=== PATIENT | male | born 1990 | race Caucasian/White ===

== ENCOUNTER 2020-11-15 10:40 | Emergency (ER) | payer MEDICAID ==
[~2020-11-15] VITALS: Ht 180.3 cm; Wt 81.6 kg
[~2020-11-15 10:40] MED LIST: METH10T PO
[2020-11-15] MEDS ORDERED: LORazepam 2MG/ML-1ML VIAL IV ONE (11:00)
[2020-11-15] MEDS ORDERED: SODIUM CHLORIDE 0.9% 1,000 ML IV ONE (11:00)
[2020-11-15 11:41] LABS: Basophils # (auto) 0.1 10 ^3/uL (0-0.2); Eosinophils # (auto) 0.1 10 ^3/uL (0-0.8); Eosinophils % (auto) 0.8 % (0.0-7.0); Hematocrit 47.1 % (41.0-53.0); Hemoglobin 16.3 g/dL (13.5-17.5); Lymphocytes # (auto) 1.5 10 ^3/uL (0.4-5.4); Lymphocytes % (auto) 20.7 % (10.0-50.0); Mean Corpuscular Hemoglobin 32.8 pg (28.0-32.0); Mean Corpuscular Hgb Conc. 34.6 g/dL (32.0-36.0); Mean Corpuscular Volume 94.9 fL (80.0-100.0); Monocytes # (auto) 0.6 10 ^3/uL (0-1.3); Monocytes % (auto) 7.9 % (0.0-12.0); Neutrophils % (auto) 69.6 % (37.0-80.0); Nucleated Red Blood Cells % 0.1 %; Platelet Count (auto) 286 10^3/uL (140-450); Red Blood Cells 4.96 10^6/uL (4.5-5.90); Red Cell Distribution Width 14.1 % (11.8-14.3); White Blood Cell 7.1 10^3/uL (4.4-10.8)
[2020-11-15 11:56] LABS: Albumin 3.8 g/dL (3.4-5.0); Calcium 9.3 mg/dL (8.5-10.1); Potassium 3.6 mmol/L (3.5-5.1)
[2020-11-15 12:00] LABS: BUN/Creatinine Ratio 10.8; Bilirubin, Total 1.4 mg/dL (0.2-1.0); Total Protein 8.2 g/dL (6.4-8.2)
[2020-11-15] MEDS ORDERED: LORazepam 0.5 MG TAB PO ONE (12:30)
[2020-11-15] MEDS ORDERED: GABA300C10 PO (12:36)
[2020-11-15] MEDS ORDERED: THIA100T5 PO (12:40)
[2020-11-15] MEDS ORDERED: FOLI1TAB6 PO (12:40)
[2020-11-15] MEDS ORDERED: GABAPENTIN 300 MG CAP PO ONE (12:45)
[2020-11-15 12:51] VITALS: BP 144/93
== END 2020-11-15 13:04 | disposition home or self-care (01) ==
LOC: ER 10:41
DX: F41.9 Anxiety disorder, unspecified (principal); F17.210 Nicotine dependence, cigarettes, uncomplicated; F14.10 Cocaine abuse, uncomplicated
CPT/HCPCS: 36415; 80053; 80320; 85025; 93005

== ENCOUNTER 2023-06-01 06:37 | Emergency (ER) | payer MEDICAID ==
[~2023-06-01] VITALS: Ht 180.3 cm; Wt 81.9 kg
[~2023-06-01 06:37] MED LIST changes: +FOLI-119 PO; +GABA-1250 PO; +PANT40TA2 PO; +THIA100T5 PO
[2023-06-01] MEDS ORDERED: SODIUM CHLORIDE 0.9% 1,000 ML IV ONE ×2 (06:45)
[2023-06-01] MEDS ORDERED: NALOXONE HCL 1MG/ML 2ML SYRINGE IV ONE (06:45)
[2023-06-01 06:56] VITALS: BP 127/92; PULSE 99; RESP 15; O2SAT 98
[2023-06-01 07:23] LABS: Basophils # (auto) 0.1 10 ^3/uL (0-0.2); Basophils % (auto) 0.6 % (0.0-2.0); Eosinophils # (auto) 0.5 10 ^3/uL (0-0.8); Eosinophils % (auto) 3.8 % (0.0-7.0); Hematocrit 45.8 % (41.0-53.0); Hemoglobin 15.5 g/dL (13.5-17.5); Lymphocytes # (auto) 2.9 10 ^3/uL (0.4-5.4); Lymphocytes % (auto) 22.4 % (10.0-50.0); Mean Corpuscular Hemoglobin 28.8 pg (28.0-32.0); Mean Corpuscular Hgb Conc. 33.8 g/dL (32.0-36.0); Monocytes # (auto) 0.9 10 ^3/uL (0-1.3); Monocytes % (auto) 7.1 % (0.0-12.0); Neutrophils # (auto) 8.6 10 ^3/uL (1.6-8.6); Neutrophils % (auto) 66.1 % (37.0-80.0); Red Blood Cells 5.39 10^6/uL (4.5-5.90)
[2023-06-01 07:36] LABS: Alanine Aminotransferase 31 U/L (7-40); Albumin 4.4 g/dL (3.2-4.8); Alkaline Phosphatase 81 U/L (46-116); Calcium 9.7 mg/dL (8.5-10.1); Chloride 104 mmol/L (98-107)
[2023-06-01 07:37] LABS: Anion Gap 6 (5-15); Aspartate Aminotransferase 20 U/L (13-40); BUN/Creatinine Ratio 7.4 (10.0-20.0); Bilirubin, Total 0.5 mg/dL (0.2-1.0); Blood Urea Nitrogen 7 mg/dL (9-23); Carbon Dioxide 28 mmol/L (20-30); Glucose 109 mg/dL (74-106); Sodium 138 mmol/L (136-145); Total Protein 8.1 g/dL (5.7-8.2)
[2023-06-01] MEDS ORDERED: SODIUM CHLORIDE 0.9% 1,000 ML IVB ONE (08:45)
== END 2023-06-01 07:47 | disposition left against medical advice (07) ==
LOC: ER 06:37 → EDBD 06:37 → ER 07:47
DX: T40.411A Poisoning by fentanyl or fentanyl analogs, accidental (unintentional), initial encounter (principal); E86.0 Dehydration; F17.210 Nicotine dependence, cigarettes, uncomplicated; F12.10 Cannabis abuse, uncomplicated; F15.10 Other stimulant abuse, uncomplicated; Y92.9 Unspecified place or not applicable
CPT/HCPCS: 36415; 80053; 85025

== ENCOUNTER 2024-12-04 11:11 | Inpatient (IN) | payer MEDICAID ==
[~2024-12-04] VITALS: Ht 167.6 cm; Wt 89.6 kg
[~2024-12-04 11:11] MED LIST changes: +METH-1214 PO; -METH10T PO
--- NOTE | 2024-12-04 12:26 | ED.PDOC ---
Musculoskeletal HPI Comments HPI: 34M was BIBA for the c/c of Right Lower Extremity Pain. Pt is Homeless and states that he has been experiencing Right lower Extremity pain for the past 3x days with no alleviating factors at this time. Pt notes of Swelling, Redness, and Tenderness that worsen while walking. Patient is homeless. Denies any fall or trauma. PMHx: Denies SHx: Appendectomy ETOH: Marijuana, Methamphetamine, Fentanyl Vitals: TEMP: 98.8 Pulse: 100 RR: 18 BP: 134/81 CUENCA: RLE HPI: Poor Historian. REVIEW OF SYSTEMS: CONSTITUTIONAL: Denies acute: fever, diaphoresis, chills, HEAD: Denies acute: headache, photophobia Eyes: Denies acute: Double vision, vision loss, eye pain, eye discharge. EARS: Denies acute: tinnitus, hearing loss, ear discharge, ear pain, THROAT: Denies acute: sore throat, swelling, difficulty swallowing , pain with swallowing, change in voice. NECK: Denies acute: neck pain, neck swelling, stiff neck. HEART: Denies acute : chest pain, palpitations, LUNGS: Denies acute: SOB, wheezing, cough, hemoptysis ABDOMEN: Denies acute: abdominal pain, Nausea, Vomiting, diarrhea, melena , hematemesis, hematochezia SKIN: Denies acute: rash, redness, lesions, itchiness. EXTREMITIES: Denies acute: calf pain, numbness, tingling, weakness, Denies acute: Low back pain. Neuro: Denies acute: focal neurological deficit, motor or sensory focal neurological deficit, tremors, seizure like activity, confusion, dizziness, change in mental status, loss of bowel or bladder function, cauda equina like symptoms. : Denies acute: dysuria, hematuria, flank pain, increase in urinary frequency. PSYCH: Denies acute: hallucination, suicidal ideation, homicidal ideation. PHYSICAL EXAM: General: ---mild to moderate-----acute distress, awake and alert. Head: normocephalic, atraumatic. Neck: supple, trachea is midline, no swelling. Throat: Normal phonation. Eyes:, no erythema, no purulent discharge, no proptosis, no icterus. Heart: regular rate, regular rhythm, no significant murmur appreciated. Lungs: no apparent respiratory distress, Able to speak in full sentences. No wheezing, no rhonchi, no crackles. No stridors Clear to auscultation bilaterally. Abdomen: non tender to palpation, non distended, soft, no guarding, no rebound, + bowel sounds. Neuro: Awake, Alert, oriented to name, self, situation, follows commands GCS=15. Speech is normal. Skin: no petechia, no purpura, no cyanosis, non-pale, not jaundice. Lower extremities: --no - Pitting edema no deformity, no focal swelling, no calf TTP. Evaluation of the area of complaint right lower extremity: Patient has tenderness to palpation of the dorsal and plantar aspect of his right foot. Patient is neurovascularly intact in the affected extremity. Pedal pulses palpable. Motor and sensory are present in the affected extremity. Patient denies any fall or trauma. Makes eye contact. moves all four extremities. Face: no apparent facial droop. ED COURSE: Chief Complaint: Lower Extremity Time Seen by MD: 12:20 Primary Care Provider: NONE Reviewed Notes: Nurses Notes, Medications, Allergies Allergies: Coded Allergies: NO KNOWN ALLERGIES (Unverified , 09/01/15) Home Meds Active Scripts Pantoprazole Sodium Sesquihydr (Protonix) 40 Mg Tab, 40 MG PO DAILY, #30 TAB Prov:PEREZ CASTREJON MD 09/13/22 Thiamine Hcl (Thiamine Hcl) 100 Mg Tab, 100 MG PO DAILY, #30 MG Prov:ISABELLE ABARCA MD 11/15/20 Folic Acid (Folic Acid) 1 Mg Tab, 1 MG PO DAILY, #30 MG Prov:ISABELLE ABARCA MD 11/15/20 Gabapentin (Gabapentin) 300 Mg Cap, 300 MG PO TID, #18 MG Take 300 mg p.o. 3 times daily x3 days, then 300 mg p.o. 2 times a day x3 days then 300 mg p.o. daily x3 days then stop Prov:ISABELLE ABARCA MD 11/15/20 Reported Medications Methadone Hcl (METHADONE HCL TABLET) 10 Mg Tb, 13 MG PO DAILY 09/01/15 Information Source: Patient Mode of Arrival: EMS Location: Right Past Medical History PAST MEDICAL HISTORY: Denies Surgical History: Appendectomy, Unknown Family History Family History: Reviewed,noncontributory to illness Social History Smoker: Cigarettes Alcohol: Occasionally Drugs: Marijuana, Methamphetamine Lives In: Home Was a procedure done? Was a procedure done?: No Differential Diagnosis EXT Differential Diagnosis: Cellulitis, CHF, Deep Vein Thrombosis, Compartment Syndrome, Fracture, Sprain, Dislocation, Laceration, Gout, DJD, Myocardial Infarction, Contusion, Strain, Rheumatoid, Septic, Neurovascular injury, Arthritis, Other (Necrotizing fasciitis) X-Ray, Labs, Meds, VS Vital Signs Date Time Temp Pulse Resp B/P (MAP) Pulse Ox O2 Delivery O2 Flow Rate FiO2 12/04/24 14:25 Room Air* 0 21 12/04/24 11:27 98.8 100 18 134/81 (98) 97 98.8 Lab Test 12/04/24 12:56 Range/Units White Blood Count 19.5 H 4.4-10.8 10^3/uL Red Blood Count 4.77 4.5-5.90 10^6/uL Hemoglobin 13.6 13.5-17.5 g/dL Hematocrit 40.0 L 41.0-53.0 % Mean Corpuscular Volume 83.8 80.0-100.0 fL Mean Corpuscular Hemoglobin 28.6 28.0-32.0 pg Mean Corpuscular Hemoglobin Concent 34.1 32.0-36.0 g/dL Red Cell Distribution Width 13.6 11.8-14.3 % Platelet Count 623 H 140-450 10^3/uL Mean Platelet Volume 6.8 L 6.9-10.8 fL Neutrophils (%) (Auto) 87.6 H 37.0-80.0 % Lymphocytes (%) (Auto) 6.9 L 10.0-50.0 % Monocytes (%) (Auto) 4.9 0.0-12.0 % Eosinophils (%) (Auto) 0.3 0.0-7.0 % Basophils (%) (Auto) 0.3 0.0-2.0 % Neutrophils # (Auto) 17.1 H 1.6-8.6 10 ^3/uL Lymphocytes # (Auto) 1.4 0.4-5.4 10 ^3/uL Monocytes # (Auto) 1.0 0-1.3 10 ^3/uL Eosinophils # (Auto) 0.1 0-0.8 10 ^3/uL Basophils # (Auto) 0.1 0-0.2 10 ^3/uL Nucleated Red Blood Cells 0.0 % Erythrocyte Sedimentation Rate 80 H 0-20 mm/hr Sodium Level 135 L 136-145 mmol/L Potassium Level 3.6 3.5-5.1 mmol/L Chloride Level 99 98-107 mmol/L Carbon Dioxide Level 26 20-31 mmol/L Anion Gap 10 5-15 Blood Urea Nitrogen 7 L 9-23 mg/dL Creatinine 0.71 0.700-1.30 mg/dL Glomerular Filtration Rate Calc 124 >90 mL/min BUN/Creatinine Ratio 9.9 L 10.0-20.0 Serum Glucose 108 H 74-106 mg/dL Lactic Acid Level 1.3 0.4-2.0 mmol/L Calcium Level 10.2 8.7-10.4 mg/dL Total Bilirubin 1.2 H 0.2-1.0 mg/dL Aspartate Amino Transferase (AST) 24 13-40 U/L Alanine Aminotransferase (ALT) 30 7-40 U/L Alkaline Phosphatase 103 46-116 U/L Creatine Kinase 138 46-171 U/L C-Reactive Protein High Sensitivity 18.06 H <1.0 mg/dL Total Protein 8.7 H 5.7-8.2 g/dL Albumin 4.6 3.2-4.8 g/dL Hepatitis B Surface Antigen Pending Hepatitis C Antibody Pending Microbiology Date/Time Source Procedure Growth Status 12/04/24 12:56 Blood Blood Culture - Preliminary NO GROWTH AFTER 24 HOURS OF INCUBATION. Resulted 12/04/24 12:40 Blood Blood Culture - Preliminary NO GROWTH AFTER 24 HOURS OF INCUBATION. Resulted PATIENT: ALFREDO CUENCAACCT: [id number]: [id number] : 1990 LOC: ER ROOM / BED: / AGE / SEX: 34 / M ADM STATUS: REG ER SERVICE 1412 ORDERING PHYSICIAN: DAVID COLBY DO PROCEDURE(s): RTLEXW - RT LOWER EXTREMITY W CON REASON: RLE/ foot pain ORDER NUMBER(s): [id number], ACCESSION NUMBER(s): [id number] CLINICAL INFORMATION: Right lower extremity pain. TECHNIQUE: Axial CT images of the right lower extremity, from the level of the distal femur through the foot were obtained after the uneventful administration of 100 mL omnipaque 300 IV contrast were obtained without IV contrast. Coronal and sagittal reformatted images were obtained, reviewed, and stored. 3D reconstructed images were created at an independent workstation with concurrent physician supervision. All CT scans at this medical facility are performed using dose modulation techniques as appropriate to a performed exam including the fol lowing: Automated exposure control was utilized; adjustment of the MA and/or KV according to patient size; and use of iterative reconstruction technique. CTDIvol = 7.75 mGy DLP = 567.66 mGy-cm COMPARISON: None FINDINGS: There is moderate diffuse subcutaneous edema in the right lower leg. No organized fluid collection or peripherally enhancing collection identified to suggest abscess. No evidence of mass or abnormal postcontrast enhancement. There is moderate fluid in the suprapatellar recess of the knee. No acute fracture. No erosive changes or cortical destruction seen. IMPRESSION: 1. Nonspecific moderate subcutaneous edema in venous stasis changes. No organized fluid collection identified to suggest abscess. 2. No evidence of mass or abnormal postcontrast enhancement. 3. Moderate fluid in the suprapatellar recess of the right knee, likely effusion. Correlate with clinical findings. ATED BY: JS MEJIA DO DICTATED DATE/TIME: 12/04/24 1538 SIGNED BY: JS MEJIA DO SIGNED DATE/TIME: 12/04/24 1538 PATIENT: ALFREDO CUENCA ACCT: [id number] UNIT: [id number] : 1990 LOC: ER ROOM / BED: / AGE / SEX: 34 / M ADM STATUS: REG ER SERVICE 1220 ORDERING PHYSICIAN: DAVID COLBY DO PROCEDURE(s): RLDVT - RT Lower DVT REASON: PAIN ORDER NUMBER(s): [id number], ACCESSION NUMBER(s): [id number] US RT Lower DVT HISTORY: PAIN COMPARISON: None TECHNIQUE: Duplex doppler evaluation of the deep venous system of the lower extremity from the common femoral veins, superficial femoral vein, great saphe nous vein, deep femoral vein, popliteal vein, and calf veins, including color doppler and spectral/pulsed waveform analysis, was performed. FINDINGS: Right: - Common femoral vein: Compressible - Deep femoral vein: Compressible - Femoral vein: Compressible - Popliteal vein: Compressible - Posterior tibial vein: Waveforms present - Peroneal vein: Waveforms present - Other: Nothing IMPRESSION: No right lower extremity deep venous thrombosis. ATED BY: JOZEF SMITH MD DICTATED DATE/TIME: 12/04/241314 SIGNED BY: JOZEF SMITH MD SIGNED DATE/TIME: 12/04/241314 Time of 1ST Reevaluation: 12:50 Reevaluation 1ST: Unchanged Patient Education/Counseling: Diagnosis, Treatment Family Education/Counseling: No Family Present Comments Patient presented with the above HPI.---right leg pain---workup was initiated. patient was found with the above mentioned diagnosis. the following medications were ordered: please refer to order lists of meds and tests obtained by myself Dr. Colby. Patient ED course and VS have been stabilized. Patient has been reassessed in the ED and remained in a stable condition. Pertinent incidental findings were discussed with the patient and/or family. Patient/family voices understanding and is agreeable with plan. Patient has been observed in the ED adequate length of time to insure improvem ent/stability. Escalation of care considered: Consideration of escalation to observation or admission Sepsis protocol was initiated. Fluids and antibiotics were given. Patient was ADMITTED to the medicine team for further evaluation and treatment of their presentation. All the reports of any imaging studies that were ordered by myself were reviewed by myself. Departure 1 Departure Time of Disposition: 14:11 Impression: Primary Impression: Right foot pain Additional Impressions: Sepsis Leukocytosis Disposition: ADMITTED INPATIENT Admit to: Tele Condition: Guarded Discharged With: Self Critical Care Note Critical Care Time?: Yes (45 min-critical care time only) Stability Stability form required: No I personally scribed for DAVID COLBY DO ([email or web address]) on 12/04/24 at 12:25. Electronically submitted by Kenneth Jackson ([email or web address]). I personally scribed for DAVID COLBY DO ([email or web address]) on 12/04/24 at 21:36. Electronically submitted by Dru Castillo ([email or web address]). DAVID COLBY DO December 04, 2024 12:25
--- NOTE | 2024-12-04 13:17 | DVH ---
US RT Lower DVT HISTORY: PAIN COMPARISON: None TECHNIQUE: Duplex doppler evaluation of the deep venous system of the lower extremity from the common femoral veins, superficial femoral vein, great saphenous vein, deep femoral vein, popliteal vein, an d calf veins, including color doppler and spectral/pulsed waveform analysis, was performed. FINDINGS: Right: - Common femoral vein: Compressible - Deep femoral vein: Compressible - Femoral vein: Compressible - Popliteal vein: Compressible - Posterior tibial vein: Waveforms present - Peroneal vein: Waveforms present - Other: Nothing IMPRESSION: No right lower extremity deep venous thrombosis.
[2024-12-04 13:19] LABS: Basophils % (auto) 0.3 % (0.0-2.0); Eosinophils # (auto) 0.1 10 ^3/uL (0-0.8); Eosinophils % (auto) 0.3 % (0.0-7.0); Hemoglobin 13.6 g/dL (13.5-17.5); Mean Corpuscular Hgb Conc. 34.1 g/dL (32.0-36.0)
[2024-12-04 13:20] LABS: Basophils # (auto) 0.1 10 ^3/uL (0-0.2); Lymphocytes # (auto) 1.4 10 ^3/uL (0.4-5.4); Lymphocytes % (auto) 6.9 % (10.0-50.0); Mean Corpuscular Hemoglobin 28.6 pg (28.0-32.0); Mean Corpuscular Volume 83.8 fL (80.0-100.0); Monocytes % (auto) 4.9 % (0.0-12.0); Neutrophils # (auto) 17.1 10 ^3/uL (1.6-8.6); Neutrophils % (auto) 87.6 % (37.0-80.0); Platelet Count (auto) 623 10^3/uL (140-450); Red Blood Cells 4.77 10^6/uL (4.5-5.90); Red Cell Distribution Width 13.6 % (11.8-14.3); White Blood Cell 19.5 10^3/uL (4.4-10.8)
[2024-12-04 13:28] LABS: Alanine Aminotransferase 30 U/L (7-40); Albumin 4.6 g/dL (3.2-4.8); Alkaline Phosphatase 103 U/L (46-116); Anion Gap 10 (5-15); Aspartate Aminotransferase 24 U/L (13-40); BUN/Creatinine Ratio 9.9 (10.0-20.0); Bilirubin, Total 1.2 mg/dL (0.2-1.0); Calcium 10.2 mg/dL (8.7-10.4); Carbon Dioxide 26 mmol/L (20-31); Chloride 99 mmol/L (98-107); Creatine Kinase IFCC 138 U/L (46-171); Potassium 3.6 mmol/L (3.5-5.1)
[2024-12-04 13:30] LABS: Blood Urea Nitrogen 7 mg/dL (9-23); Glucose 108 mg/dL (74-106); Sodium 135 mmol/L (136-145); Total Protein 8.7 g/dL (5.7-8.2)
[2024-12-04 13:40] LABS: CRP High Sensitivity 18.06 mg/dL (<1.0)
[2024-12-04] MEDS: SODIUM CHLORIDE 0.9% 1,000 ML IV ONE ×2 (14:15→22:01)
[2024-12-04] MEDS: PIPERACILLIN-TAZOB 3.375GM 100 ML IV ONE (14:15)
[2024-12-04 14:26] LABS: Erythrocyte Sedimentation Rate 80 mm/hr (0-20)
[2024-12-04] MEDS: IOHEXOL 300 MG/ML 100ML BOTTLE IJ ONE (14:47)
[2024-12-04] MEDS ORDERED: ACETAMINOPHEN 325 MG TAB PO PRN (15:30)
[2024-12-04] MEDS ORDERED: VANCOMYCIN PER PHARMACY 0 MG IV SCH (15:30)
--- NOTE | 2024-12-04 15:40 | DVH ---
CLINICAL INFORMATION: Right lower extremity pain. TECHNIQUE: Axial CT images of the right lower extremity, from the level of the distal femur through t he foot were obtained after the uneventful administration of 100 mL omnipaque 300 IV contrast were ob tained without IV contrast. Coronal and sagittal reformatted images were obtained, reviewed, and stor ed. 3D reconstructed images were created at an independent workstation with concurrent physician urvashi crews. All CT scans at this medical facility are performed using dose modulation techniques as appr opriate to a performed exam including the following: Automated exposure control was utilized; adjustm ent of the MA and/or KV according to patient size; and use of iterative reconstruction technique. CTD Ivol = 7.75 mGy DLP = 567.66 mGy-cm COMPARISON: None FINDINGS: There is moderate diffuse subcutaneous edema in the right lower leg. No organized fluid col lection or peripherally enhancing collection identified to suggest abscess. No evidence of mass or ab normal postcontrast enhancement. There is moderate fluid in the suprapatellar recess of the knee. No acute fracture. No erosive changes or cortical destruction seen. IMPRESSION: 1. Nonspecific moderate subcutaneous edema in venous stasis changes. No organized fluid collection id entified to suggest abscess. 2. No evidence of mass or abnormal postcontrast enhancement. 3. Moderate fluid in the suprapatellar recess of the right knee, likely effusion. Correlate with cli nical findings.
[2024-12-04] MEDS: VANCOMYCIN 1GM/200ML PM 250 ML IV ONE (15:43)
[2024-12-04] MEDS: PANTOPRAZOLE 40 MG/10 ML VIAL INJ IV SCH (16:00)
--- NOTE | 2024-12-04 16:02 | DVHHP2 ---
History of Present Illness Reason for Visit: Right lower extremity pain and swelling History of Present Illness Shahriar Prado is a 34-year-old male with past medical history of gastritis, hiatal hernia, and appendectomy who presents to the ED with right lower extremity itchiness, pain and swelling x3 days. Also reports of right hand open wound x2 weeks. Patient reports that he was not bit nor was there any trauma. Patient reports that he does not take any medications. He also reports that he is homeless. He denies any chest pain, shortness of breath, fever, chills, lightheadedness, weakness, dizziness, abdominal pain, nausea, vomiting, diarrhea, recent sick contacts, recent travels, or recent ingestion of spoiled food. He does endorse that he smokes less than half a pack of cigarettes per day, uses marijuana, meth, and fentanyl. GI: Gastritis Past Medical History Hiatal hernia Past Surgical History: Appendectomy Family History: Hypertension, Other (Mom with hypertension) Smoke: <1 pack per day ALCOHOL: none Drugs: Marijuana, Other (Meth and fentanyl) Lives: Homeless Domestic Violence: Neg Review of Systems Musculoskeletal: leg pain Skin: Rash, Other (abrasions on hand and RLE ) Allergies: Coded Allergies: NO KNOWN ALLERGIES (Unverified , 09/01/15) Exam Vital Signs Vital Signs Date Time Temp Pulse Resp B/P (MAP) Pulse Ox O2 Delivery O2 Flow Rate FiO2 12/04/24 11:27 98.8 100 18 134/81 (98) 97 98.8 General Appearance: Alert, Oriented X3, Cooperative, No acute distress HEENT: Atraumatic, PERRLA, EOMI, Mucous membr. moist/pink Respiratory: Normal air movement Cardiovascular: Regular rate, Normal S1, Normal S2, No murmurs Abdominal: Normal bowel sounds, Soft Extremities: No cyanosis Neuro: Normal speech, Normal tone, Sensation intact Psych/Mental Status: Mental status NL, Mood NL Labs/Xrays Labs Test 12/04/24 12:56 Range/Units White Blood Count 19.5 H 4.4-10.8 10^3/uL Red Blood Count 4.77 4.5-5.90 10^6/uL Hemoglobin 13.6 13.5-17.5 g/dL Hematocrit 40.0 L 41.0-53.0 % Mean Corpuscular Volume 83.8 80.0-100.0 fL Mean Corpuscular Hemoglobin 28.6 28.0-32.0 pg Mean Corpuscular Hemoglobin Concent 34.1 32.0-36.0 g/dL Red Cell Distribution Width 13.6 11.8-14.3 % Platelet Count 623 H 140-450 10^3/uL Mean Platelet Volume 6.8 L 6.9-10.8 fL Neutrophils (%) (Auto) 87.6 H 37.0-80.0 % Lymphocytes (%) (Auto) 6.9 L 10.0-50.0 % Monocytes (%) (Auto) 4.9 0.0-12.0 % Eosinophils (%) (Auto) 0.3 0.0-7.0 % Basophils (%) (Auto) 0.3 0.0-2.0 % Neutrophils # (Auto) 17.1 H 1.6-8.6 10 ^3/uL Lymphocytes # (Auto) 1.4 0.4-5.4 10 ^3/uL Monocytes # (Auto) 1.0 0-1.3 10 ^3/uL Eosinophils # (Auto) 0.1 0-0.8 10 ^3/uL Basophils # (Auto) 0.1 0-0.2 10 ^3/uL Nucleated Red Blood Cells 0.0 % Erythrocyte Sedimentation Rate 80 H 0-20 mm/hr Sodium Level 135 L 136-145 mmol/L Potassium Level 3.6 3.5-5.1 mmol/L Chloride Level 99 98-107 mmol/L Carbon Dioxide Level 26 20-31 mmol/L Anion Gap 10 5-15 Blood Urea Nitrogen 7 L 9-23 mg/dL Creatinine 0.71 0.700-1.30 mg/dL Glomerular Filtration Rate Calc 124 >90 mL/min BUN/Creatinine Ratio 9.9 L 10.0-20.0 Serum Glucose 108 H 74-106 mg/dL Lactic Acid Level 1.3 0.4-2.0 mmol/L Calcium Level 10.2 8.7-10.4 mg/dL Total Bilirubin 1.2 H 0.2-1.0 mg/dL Aspartate Amino Transferase (AST) 24 13-40 U/L Alanine Aminotransferase (ALT) 30 7-40 U/L Alkaline Phosphatase 103 46-116 U/L Creatine Kinase 138 46-171 U/L C-Reactive Protein High Sensitivity 18.06 H <1.0 mg/dL Total Protein 8.7 H 5.7-8.2 g/dL Albumin 4.6 3.2-4.8 g/dL CLINICAL INFORMATION: Right lower extremity pain. TECHNIQUE: Axial CT images of the right lower extremity, from the level of the distal femur through the foot were obtained after the uneventful administration of 100 mL omnipaque 300 IV contrast were obtained without IV contrast. Coronal and sagittal reformatted images were obtained, reviewed, and stored. 3D reconstructed images were created at an independent workstation with concurrent physician supervision. All CT scans at this medical facility are performed using dose modulation techniques as appropriate to a performed exam including the following: Automated exposure control was utilized; adjustment of the MA and/or KV according to patient size; and use of iterative reconstruction technique. CTDIvol = 7.75 mGy DLP = 567.66 mGy-cm COMPARISON: None FINDINGS: There is moderate diffuse subcutaneous edema in the right lower leg. No organized fluid collection or peripherally enhancing collection identified to suggest abscess. No evidence of mass or abnormal postcontrast enhancement. There is moderate fluid in the suprapatellar recess of the knee. No acute fracture. No erosive changes or cortical destruction seen. IMPRESSION: 1. Nonspecific moderate subcutaneous edema in venous stasis changes. No organized fluid collection identified to suggest abscess. 2. No evidence of mass or abnormal postcontrast enhancement. 3. Moderate fluid in the suprapatellar recess of the right knee, likely effusion. Correlate with clinical findings. US RT Lower DVT HISTORY: PAIN COMPARISON: None TECHNIQUE: Duplex doppler evaluation of the deep venous system of the lower extremity from the common femoral veins, superficial femoral vein, great saphenous vein, deep femoral vein, popliteal vein, and calf veins, including color doppler and spectral/pulsed waveform analysis, was performed. FINDINGS: Right: - Common femoral vein: Compressible - Deep femoral vein: Compressible - Femoral vein: Compressible - Popliteal vein: Compressible - Posterior tibial vein: Waveforms present - Peroneal vein: Waveforms present - Other: Nothing IMPRESSION: No right lower extremity deep venous thrombosis. Assessment/Plan Assessment/Plan Assessment Leukocytosis probable SIRS versus sepsis Right lower extremity pain and swelling likely cellulitis Probable right knee effusion Hyperbilirubinemia Tobacco use Marijuana use Meth use Fentanyl use Obesity History of gastritis History of hiatal hernia History of appendectomy Plan Admit to [facility] Antiemetics Pain management Wound culture Gram stain Wound consult IV antibiotics-Zosyn + vancomycin NS [address] right lower extremity Blood cultures Right lower extremity venous UA ESR Lactic level UDS CK CRP Diet Per patient does not take any medications DVT prophylaxis-Lovenox PUD prophylaxis-PPIs Discussed plan of care with patient and nurse Counseled patient on lifestyle modifications, diet, and exercise Counseled patient on cessation of tobacco use, meth use, and fentanyl use Social work consult-patient homeless Plan discussed with: Patient My Orders Orders - ARINA VILLARREAL Procedure Category Date Status Time Vancomycin Per PHA 12/04/24 Verified Pharmacy 15:30 Zosyn Extended PHA 12/04/24 Verified Infusion 22:00 Drug Screen LAB 12/04/24 Verified 15:29 Erythrocyte LAB 12/04/24 Verified Sedimentation Rate 15:29 Admit ADMIT 12/04/24 Verified 15:29 Allergies ARACELY 12/04/24 Verified 15:29 Code Status CODE 12/04/24 Verified 15:29 Hydrocodone-Acet PHA 12/04/24 Verified 5/325mg Tab (Poteet 15:30 Ondansetron Hcl PHA 12/04/24 Verified (Zofran) 15:30 Enoxaparin Sodium PHA 12/05/24 Verified (Lovenox) 10:00 Complete Blood Count LAB 12/05/24 Verified 04:00 Comprehensive LAB 12/05/24 Verified Metabolic Panel 04:00 Cardiac DIET 12/04/24 Verified Diet-2gna,Lofat,Lochol Dinner Acetaminophen Tablet PHA 12/04/24 Verified (Tylenol Tablet) 15:30 * Wound Consult CONS 12/04/24 Verified Wound Culture W/ Gs RAVEN 12/04/24 Verified 15:29 Date of Service: December 04, 2024 Billing Provider: ARINA VILLARREAL Common Visit Codes: [id number] INP/OBS CARE (HIGH) ARIAN VILLARREAL December 04, 2024 16:02
[2024-12-04 18:20] VITALS: BP 101/62; PULSE 84; RESP 18; TEMP 99.1; O2SAT 93; O2SAT 94
[2024-12-04 19:10] VITALS: TEMP 99.4
[2024-12-04 19:17] LABS: Urine Bacteria None Seen /hpf (None Seen)
[2024-12-04 19:39] LABS: Urine Blood Negative /uL (Negative); Urine Clarity Clear (Clear); Urine Color Yellow (Yellow); Urine Mucus FEW (None Seen); Urine Protein, UAD TRACE (Negative); Urine Squamous Epithelial Cell FEW /hpf (<5); Urine Urobilinogen Normal (Negative); Urine WBC 1 /HPF (0-3); Urine pH 6.5 (5.0-9.0)
[2024-12-04 19:48] LABS: Urine Specific Gravity > 1.050 (1.001-1.035)
[2024-12-04 19:59] LABS: Amphetamine Screen, Urine Pos (NEGATIVE); Barbiturate Scree,Urine Neg (NEGATIVE); Benzodiazephine Screen, Urine Neg (NEGATIVE); Cannabinoid Screen, Urine Neg (NEGATIVE); Cocaine Screen, Urine Neg (NEGATIVE); Opiate Scree,Urine Neg (NEGATIVE); Phencyclidine Screen, Urine Neg (NEGATIVE)
[2024-12-04 20:00] VITALS: PULSE 90; RESP 26; O2SAT 98
[2024-12-04 21:00] VITALS: BP 120/73; PULSE 90; RESP 26; TEMP 98.5; O2SAT 98
[2024-12-04] MEDS: VANCOMYCIN 750mg/150ml 150 ML IV SCH (22:01)
[2024-12-04] MEDS: PIPERACILLIN-TAZOB 3.375GM 100 ML IV SCH (23:58)
[2024-12-05] VITALS (8 sets, daily range): BP systolic 111–131; BP diastolic 51–77; PULSE 88–103; RESP 16–23; TEMP 97.4–99.7; O2SAT 95–99
[2024-12-05] MEDS: HYDROcodone-ACET 5/325MG TAB PO PRN (05:48)
[2024-12-05 05:59] LABS: Eosinophils % (auto) 0.3 % (0.0-7.0); Hemoglobin 12.7 g/dL (13.5-17.5); Red Cell Distribution Width 13.6 % (11.8-14.3)
[2024-12-05 06:05] LABS: Basophils # (auto) 0.1 10 ^3/uL (0-0.2); Basophils % (auto) 0.3 % (0.0-2.0); Eosinophils # (auto) 0.1 10 ^3/uL (0-0.8); Hematocrit 37.2 % (41.0-53.0); Lymphocytes # (auto) 1.3 10 ^3/uL (0.4-5.4); Lymphocytes % (auto) 7.6 % (10.0-50.0); Mean Corpuscular Hemoglobin 28.4 pg (28.0-32.0); Mean Corpuscular Hgb Conc. 34.1 g/dL (32.0-36.0); Mean Corpuscular Volume 83.4 fL (80.0-100.0); Monocytes # (auto) 0.8 10 ^3/uL (0-1.3); Monocytes % (auto) 4.5 % (0.0-12.0); Neutrophils # (auto) 15.3 10 ^3/uL (1.6-8.6); Neutrophils % (auto) 87.3 % (37.0-80.0); Platelet Count (auto) 609 10^3/uL (140-450); Red Blood Cells 4.46 10^6/uL (4.5-5.90); White Blood Cell 17.5 10^3/uL (4.4-10.8)
[2024-12-05 06:23] LABS: Alanine Aminotransferase 24 U/L (7-40); Albumin 3.9 g/dL (3.2-4.8); Alkaline Phosphatase 94 U/L (46-116); Anion Gap 12 (5-15); Aspartate Aminotransferase 18 U/L (13-40); BUN/Creatinine Ratio 10.9 (10.0-20.0); Calcium 9.1 mg/dL (8.7-10.4); Carbon Dioxide 23 mmol/L (20-31); Chloride 103 mmol/L (98-107); Sodium 138 mmol/L (136-145); Total Protein 7.6 g/dL (5.7-8.2)
[2024-12-05 06:34] LABS: Blood Urea Nitrogen 7 mg/dL (9-23); Glucose 126 mg/dL (74-106); Potassium 3.2 mmol/L (3.5-5.1)
[2024-12-05] MEDS: ENOXAPARIN SOD 40 MG/0.4 ML SYRINGE SC SCH (08:54)
--- NOTE | 2024-12-05 11:33 | DVHPN2 ---
Subjective 34-year-old male homeless came with chief complaint of pain and swelling in his right leg for 3-4 days He has cellulitis Changes from previous H/P or p: Changes Musculoskeletal: leg pain Skin: Rash, Other (abrasions on hand and RLE ) Objective Vitals Vital Signs Date Time Temp Pulse Resp B/P (MAP) Pulse Ox O2 Delivery O2 Flow Rate FiO2 12/05/24 08:36 98.8 88 16 123/68 (86) 98 98.8 12/05/24 08:05 Room Air* 0 21 Intake/Output Intake and Output 12/05/24 07:00 Intake Total 1400 ml Output Total 500 ml Balance 900 ml Intake Oral 0 ml IV Total 1400 ml Output Urine Total 500 ml General Appearance: Alert, Oriented X3, Cooperative Extremities: No edema, Other (Right lower extremity edema and erythema [id number]) Medications Current Medications Medications Dose Ordered Sig/Elina Route Start Time Stop Time Status Last Admin Dose Admin Vancomycin HCl 0 ml @ 0 mls/hr UD IV 12/04/24 15:30 Piperacillin Sod/ Tazobactam Sod 100 ml @ 25 mls/hr Q6H IV 12/04/24 23:00 12/05/24 10:52 25 MLS/HR Acetaminophen/ Hydrocodone Bitart 1 tab Q4HP PRN PO 12/04/24 15:30 12/05/24 05:48 1 TAB Ondansetron HCl 4 mg Q4HP PRN IV 12/04/24 15:30 Enoxaparin Sodium 40 mg DAILY SC 12/05/24 10:00 12/05/24 08:54 40 MG Acetaminophen 650 mg Q6HP PRN PO 12/04/24 15:30 Pantoprazole Sodium 40 mg DAILY IV 12/04/24 16:00 12/05/24 08:54 40 MG Vancomycin HCl 150 ml @ 150 mls/hr Q6H IV 12/04/24 22:00 12/05/24 08:59 150 MLS/HR Laboratory Results Laboratory Tests 12/05/24 05:28 Chemistry Test 12/04/24 12:56 12/05/24 05:28 Albumin 4.6 g/dL (3.2-4.8) 3.9 g/dL (3.2-4.8) Calcium Level 10.2 mg/dL (8.7-10.4) 9.1 mg/dL (8.7-10.4) Total Protein 8.7 g/dL (5.7-8.2) H 7.6 g/dL (5.7-8.2) LFT Test 12/04/24 12:56 12/05/24 05:28 Alanine Aminotransferase (ALT) 30 U/L (7-40) 24 U/L (7-40) Alkaline Phosphatase 103 U/L (46-116) 94 U/L (46-116) Aspartate Amino Transferase (AST) 24 U/L (13-40) 18 U/L (13-40) Total Bilirubin 1.2 mg/dL (0.2-1.0) H 1.0 mg/dL (0.2-1.0) Urinalysis Test 12/04/24 18:47 Urine Color Yellow (Yellow) Urine Clarity Clear (Clear) Urine pH 6.5 (5.0-9.0) Urine Specific [place] > 1.050 (1.001-1.035) Urine Protein Trace (Negative) H Urine Ketones 1+ (Negative) H Urine Blood Negative /uL (Negative) Urine Nitrite Negative (Negative) Urine Bilirubin Negative (Negative) Urine Urobilinogen Normal mg/dL (Negative) Urine Leukocyte Esterase Negative /uL (Negative) Urine RBC 1 /hpf (0 - 3) Urine Microscopic WBC 1 /HPF (0-3) Urine Squamous Epithelial Cells Few /hpf (<5) Urine Bacteria None seen /hpf (None Seen) Urine Mucus Few (None Seen) Urine Glucose Normal mg/dL (Normal) Assessment/Plan Assessment/Plan Right lower extremity cellulitis Homeless Drug use Sepsis due to cellulitis Hypokalemia Plan IV antibiotics Zosyn and vancomycin Wound care Social consult Replace potassium Full code Advance directives discussed for 17 minutes Plan discussed with: Patient Date of Service: December 05, 2024 Billing Provider: TRIP LEDBETTER MD Common Visit Codes: [id number] INP/OBS CARE(HIGH) Secondary Visit Codes: [id number] CARE PLAN 30 MINUTES TRIP LEDBETTER MD December 05, 2024 11:33
[2024-12-05] MEDS: POTASSIUM CHL 20 Meq TABLET PO ONE (12:28)
[2024-12-05] MEDS ORDERED: VANCOMYCIN 750MG KIT 100 ML IV SCH (20:00)
[2024-12-05] MEDS: ONDANSETRON HCL 4 MG/2 ML VIAL IV PRN (20:17)
[2024-12-05] MEDS: VANCOMYCIN 750mg/150ml 150 ML IV SCH (21:31)
[2024-12-06 01:00] VITALS: BP 140/76; PULSE 78; RESP 18; TEMP 97.9; O2SAT 96
[2024-12-06 05:00] VITALS: BP 119/92; PULSE 75; RESP 20; TEMP 98.7; O2SAT 98
[2024-12-06 06:40] LABS: Basophils # (auto) 0 10 ^3/uL (0-0.2); Basophils % (auto) 0.1 % (0.0-2.0); Eosinophils # (auto) 0 10 ^3/uL (0-0.8); Hemoglobin 13.8 g/dL (13.5-17.5); Lymphocytes # (auto) 1.4 10 ^3/uL (0.4-5.4); Neutrophils # (auto) 16.5 10 ^3/uL (1.6-8.6); White Blood Cell 18.7 10^3/uL (4.4-10.8)
[2024-12-06 06:44] LABS: Hematocrit 39.9 % (41.0-53.0); Lymphocytes % (auto) 7.4 % (10.0-50.0); Mean Corpuscular Hemoglobin 28.7 pg (28.0-32.0); Mean Corpuscular Hgb Conc. 34.5 g/dL (32.0-36.0); Monocytes # (auto) 0.8 10 ^3/uL (0-1.3); Neutrophils % (auto) 88.5 % (37.0-80.0); Red Cell Distribution Width 13.5 % (11.8-14.3)
[2024-12-06 06:53] LABS: Albumin 4.2 g/dL (3.2-4.8); Anion Gap 12 (5-15); BUN/Creatinine Ratio 11.8 (10.0-20.0); Bilirubin, Total 0.5 mg/dL (0.2-1.0); Calcium 9.5 mg/dL (8.7-10.4); Carbon Dioxide 25 mmol/L (20-31); Chloride 104 mmol/L (98-107); Magnesium 2.3 mg/dL (1.6-2.6); Sodium 141 mmol/L (136-145)
[2024-12-06 06:58] LABS: Alanine Aminotransferase 60 U/L (7-40); Alkaline Phosphatase 118 U/L (46-116); Aspartate Aminotransferase 43 U/L (13-40); Blood Urea Nitrogen 8 mg/dL (9-23); Glucose 128 mg/dL (74-106); Potassium 3.2 mmol/L (3.5-5.1); Total Protein 8.5 g/dL (5.7-8.2)
[2024-12-06 07:39] LABS: Platelet Count (auto) 736 10^3/uL (140-450)
[2024-12-06 08:10] VITALS: O2SAT 98
[2024-12-06 09:00] VITALS: BP 123/69; PULSE 76; RESP 18; TEMP 98.3; O2SAT 98
[2024-12-06] MEDS: POTASSIUM CHL 20 Meq TABLET PO ONE (10:01)
[2024-12-06 10:19] LABS: Hepatitis B Surface Antigen Negative (Negative); Hepatitis C Antibody Negative (Negative)
--- NOTE | 2024-12-06 11:32 | DVHPN2 ---
Subjective Better Less edema and pain in his right leg White count is still high Potassium 3.2 Elevated liver function tests Changes from previous H/P or p: Changes Musculoskeletal: leg pain Skin: Rash, Other (abrasions on hand and RLE ) Objective Vitals Vital Signs Date Time Temp Pulse Resp B/P (MAP) Pulse Ox O2 Delivery O2 Flow Rate FiO2 12/06/24 09:00 98.3 76 18 123/69 (87) 98 98.3 12/06/24 08:10 Room Air* 0 21 Intake/Output Intake and Output 12/06/24 07:00 Intake Total 1736 ml Output Total 1900 ml Balance -164 ml Intake Oral 1036 ml IV Total 700 ml Output Urine Total 1900 ml General Appearance: Alert, Oriented X3, Cooperative Extremities: No edema, Other (Right lower extremity edema and erythema [id number]) Medications Current Medications Medications Dose Ordered Sig/Elina Route Start Time Stop Time Status Last Admin Dose Admin Vancomycin HCl 0 ml @ 0 mls/hr UD IV 12/04/24 15:30 Piperacillin Sod/ Tazobactam Sod 100 ml @ 25 mls/hr Q6H IV 12/04/24 23:00 12/06/24 10:38 25 MLS/HR Acetaminophen/ Hydrocodone Bitart 1 tab Q4HP PRN PO 12/04/24 15:30 12/05/24 20:17 1 TAB Ondansetron HCl 4 mg Q4HP PRN IV 12/04/24 15:30 12/05/24 20:17 4 MG Enoxaparin Sodium 40 mg DAILY SC 12/05/24 10:00 12/06/24 09:20 40 MG Acetaminophen 650 mg Q6HP PRN PO 12/04/24 15:30 Pantoprazole Sodium 40 mg DAILY IV 12/04/24 16:00 12/06/24 09:19 40 MG Vancomycin HCl 150 ml @ 150 mls/hr Q12HR IV 12/05/24 22:00 12/06/24 09:20 150 MLS/HR Laboratory Results Laboratory Tests 12/06/24 05:51 Chemistry Test 12/06/24 05:51 Albumin 4.2 g/dL (3.2-4.8) Calcium Level 9.5 mg/dL (8.7-10.4) Magnesium Level 2.3 mg/dL (1.6-2.6) Total Protein 8.5 g/dL (5.7-8.2) H LFT Test 12/06/24 05:51 Alanine Aminotransferase (ALT) 60 U/L (7-40) H Alkaline Phosphatase 118 U/L (46-116) H Aspartate Amino Transferase (AST) 43 U/L (13-40) H Total Bilirubin 0.5 mg/dL (0.2-1.0) Urinalysis Test 12/04/24 18:47 Urine Color Yellow (Yellow) Urine Clarity Clear (Clear) Urine pH 6.5 (5.0-9.0) Urine Specific [place] > 1.050 (1.001-1.035) Urine Protein Trace (Negative) H Urine Ketones 1+ (Negative) H Urine Blood Negative /uL (Negative) Urine Nitrite Negative (Negative) Urine Bilirubin Negative (Negative) Urine Urobilinogen Normal mg/dL (Negative) Urine Leukocyte Esterase Negative /uL (Negative) Urine RBC 1 /hpf (0 - 3) Urine Microscopic WBC 1 /HPF (0-3) Urine Squamous Epithelial Cells Few /hpf (<5) Urine Bacteria None seen /hpf (None Seen) Urine Mucus Few (None Seen) Urine Glucose Normal mg/dL (Normal) Microbiology Microbiology Date/Time Source Procedure Growth Status 12/04/24 18:47 Nose MRSA Screen - Final Complete 12/04/24 12:56 Blood Blood Culture - Preliminary NO GROWTH AFTER 24 HOURS OF INCUBATION. Resulted Assessment/Plan Assessment/Plan Right lower extremity cellulitis Homeless Drug use Sepsis due to cellulitis Hypokalemia Plan IV antibiotics Zosyn and vancomycin Wound care Social consult Replace potassium Full code Advance directives discussed for 17 minutes 12/06/2024: Cellulitis: Continue IV antibiotics Sepsis: Continue treatment Blood cultures are negative Monitor closely Hypokalemia: Replace Plan discussed with: Patient My Orders Orders - TRIP LEDBETTER MD Procedure Category Date Status Time Drug Screen LAB 12/05/24 Logged 11:29 Date of Service: December 06, 2024 Billing Provider: TRIP LEDBETTER MD Common Visit Codes: [id number] INP/OBS CARE(HIGH) TRIP LEDBETTER MD December 06, 2024 11:32
[2024-12-06 13:00] VITALS: BP 133/82; PULSE 63; RESP 18; TEMP 98; O2SAT 98
== END 2024-12-06 15:41 | disposition left against medical advice (07) | DRG 720 ==
LOC: ER 11:11 → EDBD 11:11 → OVERFLOW 15:29 → CENTRAL 18:40
PROVIDERS: ADMIT Internal Medicine Geriatric Medicine; ATTEND Internal Medicine Geriatric Medicine
DX: A41.9 Sepsis, unspecified organism (principal); L03.115 Cellulitis of right lower limb; E80.6 Other disorders of bilirubin metabolism; E66.9 Obesity, unspecified; F15.90 Other stimulant use, unspecified, uncomplicated; R79.89 Other specified abnormal findings of blood chemistry; F17.210 Nicotine dependence, cigarettes, uncomplicated; E87.6 Hypokalemia; Z68.33 Body mass index [BMI] 33.0-33.9, adult; Z59.00 Homelessness unspecified; Z82.49 Family history of ischemic heart disease and other diseases of the circulatory system; Z90.49 Acquired absence of other specified parts of digestive tract; Z53.29 Procedure and treatment not carried out because of patient's decision for other reasons
CPT/HCPCS: 36415; 73701; 80053; 80202; 80307; 81001; 82550; 83605; 83735; 85025; 85652; 86141; 86803; 87040; 87081; 87340; 93971; G0378; J2405; J2470; J2543